=== PATIENT | female | born 1980 | race Caucasian/White ===

== ENCOUNTER 2019-06-04 18:41 | Emergency (ER) | payer OTHER, SELFPAY ==
--- NOTE | ~2019-06-04 | XR_ITS ---
XR shoulder RT min 2V 06/04/2019 19:12 INDICATION: Right shoulder pain PROCEDURE: 4 views right shoulder COMPARISON: No prior studies for comparison. FINDINGS: Fracture, dislocation or subluxation is not identified. The soft tissues appear within norm al limits. No foreign bodies are identified. IMPRESSION: 1: NO ACUTE BONE OR JOINT ABNORMALITY IDENTIFIED. Reviewed, dictated and finalized at location A.
[2019-06-04 18:49] VITALS: BP 150/100; PULSE 82; RESP 16; TEMP 36.8; O2SAT 100
--- NOTE | 2019-06-04 19:22 | ED.GENADULT ---
HPI - General Adult General Chief complaint: Extremity Injury, Upper Stated complaint: right shoulder pain Time Seen by Provider: 06/04/19 18:50 Source: patient Mode of arrival: ambulatory Limitations: no limitations History of Present Illness HPI narrative: Patient is a 39-year-old female who presents with several days duration of right shoulder injury that began after working noting aching pain of the shoulder with difficulty lifting the shoulder above the neutral position patient notes aching pain throughout the rotator cuff musculature. Patient denies any radicular symptoms paresthesias or similar occurrence in the past. On arrival patient resting comfortably in the room in no distress with no other complaints Related Data Home Medications Medication Instructions Recorded Confirmed aripiprazole 5 mg 06/04/19 lamotrigine 100 mg 06/04/19 omeprazole 40 mg PO DAILY 06/04/19 06/04/19 Allergies Allergy/AdvReac Type Severity Reaction Status Date / Time clarithromycin Allergy Unknown Unknown Verified 06/04/19 18:59 Sulfa (Sulfonamide Allergy Unknown Unknown Verified 06/04/19 18:59 Antibiotics) Review of Systems Review of Systems: Narrative: CONSTITUTIONAL: Denies fever, chills, or sweats. SKIN: Denies bruising or swelling MUSCULOSKELETAL: Positive for right shoulder pain NEUROLOGIC: Denies numbness, or weakness. [facility] Past Medical History Medical History Depression Family History Family History (Updated 09/14/18 @ 13:20 by DOCTOR UNKNOWN) Father Diabetes mellitus Hypertension Grandparent Diabetes mellitus Family history of cardiovascular disease Cerebrovascular accident Mother Hypertension Social History Social History Smoking status: Never smoker Alcohol intake: current Gender identity (if verbalized by the patient): Female Exam Narrative: Exam Narrative: GENERAL: Well-appearing, well-nourished, and in no acute distress. EXTREMITIES: Tenderness of the right rotator cuff musculature with no deformity noted SKIN: Warm, dry, no rash. NEURO: No focal deficits. Alert and oriented x3. Neurovascularly intact PSYCH: Normal mood and affect. Course Course Emergency Course: Patient in the room in no distress aware of case findings treatment plan and diagnosis agreeing to follow-up as directed Vital Signs Vital signs: Vital Signs Temperature 98.2 F 06/04/19 18:49 Pulse Rate 82 06/04/19 18:49 Respiratory Rate 16 06/04/19 18:49 Blood Pressure 150/100 H 06/04/19 18:49 Pulse Oximetry 100 06/04/19 18:49 Temperature 98.2 F 06/04/19 18:49 Pulse Rate 82 06/04/19 18:49 Respiratory Rate 16 06/04/19 18:49 Blood Pressure 150/100 H 06/04/19 18:49 Pulse Oximetry 100 06/04/19 18:49 Medical Decision Making MDM Narrative Medical decision making narrative: Patients injury or pain is consistent with musculoskeletal etiology. No signs of neurological or vascular compromise on exam. Compartments and tisues are soft without signs of compartment syndrome. Pain is felt appropriate for further evaluation on an outpatient basis. Vital Signs Vital Signs: Vital Signs Temperature 98.2 F 06/04/19 18:49 Pulse Rate 82 06/04/19 18:49 Respiratory Rate 16 06/04/19 18:49 Blood Pressure 150/100 H 06/04/19 18:49 Pulse Oximetry 100 06/04/19 18:49 Temperature 98.2 F 06/04/19 18:49 Pulse Rate 82 06/04/19 18:49 Respiratory Rate 16 06/04/19 18:49 Blood Pressure 150/100 H 06/04/19 18:49 Pulse Oximetry 100 06/04/19 18:49 Imaging Data Radiologist's impression: ITS Impressions Shoulder X-Ray 06/04/19 19:16 IMPRESSION: 1: NO ACUTE BONE OR JOINT ABNORMALITY IDENTIFIED. Discharge Plan Discharge Clinical Impression: Acute pain of right shoulder Patient Disposition: Home, Self-Care Condition: Stable Inst
[2019-06-04 19:51] VITALS: BP 139/98; PULSE 80; RESP 16; O2SAT 99
== END 2019-06-04 19:53 | disposition home or self-care (01) ==
PROVIDERS: Emergency Provider Emergency Medicine; PCP Family Medicine
DX: M25.511 Pain in right shoulder (principal); F32.9 Major depressive disorder, single episode, unspecified
CPT/HCPCS: 73030; 99283